=== PATIENT | female | born 1980 | race Two or more races ===

== ENCOUNTER 2018-09-23 08:21 | Emergency (ER) | payer OTHER ==
[~2018-09-23] VITALS: Ht 157.5 cm; Wt 52.2 kg
--- NOTE | 2018-09-23 08:28 | NUR ---
ED Nurse Note: Pt [place]IBA from [facility] store w/ complaints of palpitations since yesterday. Pt is also complaining of left under breast pain 03/26. Non radiating. Pt is A + O x4. Ambulatory. Skin warm to touch. Pt appears to be irritable. Pt takes synthroid for her thyroid.
[2018-09-23 08:30] VITALS: BP 132/91
--- NOTE | 2018-09-23 08:38 | NUR ---
ED Nurse Note: After being seen by JAY, pt decided to elope. Stated that she could "not take it anymore" and decided to leave w/o orders being carried out. Pt still was very irritable. Pt left ER w/ steady gait and w/ all of her belongings.
[2018-09-23 08:41] VITALS: BP 132/91
[2018-09-23] MEDS ORDERED: Morphine Sulfate 4mg/ml Inj (IV USE ONLY) IVP ONE (08:45)
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
== END 2018-09-23 08:45 | disposition left against medical advice (07) ==
LOC: EDBD 08:21 → EMR 08:30
DX: R00.2 Palpitations (principal); Z88.8 Allergy status to other drugs, medicaments and biological substances
CPT/HCPCS: 99282

== ENCOUNTER 2019-10-16 17:09 | Emergency (ER) | payer OTHER ==
[~2019-10-16] VITALS: Ht 160 cm; Wt 54.4 kg
[2019-10-16 17:15] VITALS: BP 125/72
--- NOTE | 2019-10-16 17:15 | NUR ---
ED Nurse Note: Patient [place] from street [place]. Patient appears to be intoxicated from ETOH. Patient AxO x 4, but slurring words. Patient resting safely in bed, cooperative.
[2019-10-16] MEDS ORDERED: Ketorolac 30mg Inj IV ONE (17:30)
[2019-10-16 18:06] LABS: BASOPHILS % (AUTO) 1.9 % (0.0-2.0); EOSINOPHILS % (AUTO) 0.3 % (0.0-3.0); HEMATOCRIT 36.2 % (37.0-47.0); HEMOGLOBIN 11.1 G/DL (12.0-16.0); LYMPHOCYTES % (AUTO) 32.1 % (20.0-45.0); MEAN CORPUSCULAR VOLUME 99 FL (80-99); MONOCYTES % (AUTO) 5.8 % (1.0-10.0); PLATELET COUNT 199 K/UL (150-450); RED BLOOD COUNT 3.67 M/UL (4.20-5.40); WHITE BLOOD COUNT 3.7 K/UL (4.8-10.8)
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
[2019-10-16 18:18] LABS: ANION GAP 17 mmol/L (5-15); BLOOD UREA NITROGEN 3 mg/dL (7-18); CALCIUM 8.4 MG/DL (8.5-10.1); CARBON DIOXIDE 19 MMOL/L (21-32); CHLORIDE 105 MMOL/L (98-107); CREATININE 0.5 MG/DL (0.55-1.30); POTASSIUM 4.4 MMOL/L (3.5-5.1); SODIUM 141 MMOL/L (136-145)
[2019-10-16 18:25] LABS: ALANINE AMINOTRANSFERASE 73 U/L (12-78); ALBUMIN 4.1 G/DL (3.4-5.0); ALBUMIN/GLOBULIN RATIO 1.1 (1.0-2.7); ALKALINE PHOSPHATASE 61 U/L (46-116); ASPARTATE AMINO TRANSFERASE 120 U/L (15-37); BILIRUBIN,TOTAL 0.4 MG/DL (0.2-1.0)
--- NOTE | 2019-10-16 18:30 | NUR ---
ED Nurse Note: 22g IV started in left wrist. Blood and urine specimen sent to lab
[2019-10-16] MEDS ORDERED: D5 1/2NS 1000ml IV ONE (18:45)
--- NOTE | 2019-10-16 18:48 | Diagnostic Imaging Report ---
History: PAIN Exam: XR CXR 1 VIEW Comparison: None available FINDINGS: The lungs are clear. The cardiac and mediastinal contours are within limits. The visualized osseous structures appear within limits. IMPRESSION: No evidence of acute disease.
[2019-10-16] MEDS ORDERED: FAMOTIDINE20 MG ORAL (18:59)
[2019-10-16] MEDS ORDERED: DOXYCYCLINE HY100 M6 PO (18:59)
[2019-10-16 19:00] VITALS: BP 127/71
[2019-10-16] MEDS ORDERED: cefTRIAXone 1 GM in NS 55 ML IVPB ONE (19:00)
[2019-10-16] MEDS ORDERED: Doxycycline Monohydrate 100mg ORAL ONE (19:00)
--- NOTE | 2019-10-16 19:10 | NUR ---
HAND-OFF: Report given to Adela HESS.
--- NOTE | 2019-10-16 19:15 | NUR ---
ED Nurse Note: Report received from DESHAWN Alaniz. Pt is awake and alert, resting in bed. NAD. Will cont. to monitor.
[2019-10-16 19:39] LABS: APPEARANCE,URINE CLEAR; BILIRUBIN, URINE NEGATIVE (NEGATIVE); COLOR,URINE PALE YELLOW; GLUCOSE, URINE (UA) NEGATIVE (NEGATIVE); KETONES,URINE 1+ (NEGATIVE); LEUKOCYTE ESTERASE ,URINE NEGATIVE (NEGATIVE); NITRITE,URINE NEGATIVE (NEGATIVE); PH,URINE 6 (4.5-8.0); PROTEIN,URINE 1+ (NEGATIVE); UROBILINOGEN,URINE NORMAL MG/DL (0.0-1.0)
--- NOTE | 2019-10-16 20:40 | NUR ---
ED Nurse Note: Pt is awake and alert at this time, resting in bed. Pt is asking when she can leave, ERMD aware.
[2019-10-16 21:15] VITALS: BP 130/65
--- NOTE | 2019-10-16 21:15 | NUR ---
ER DISCHARGE NOTE: Patient is cleared to be discharged per ERMD, pt is aox4, on room air, with stable vital signs. pt was given dc and prescription instructions, pt was able to verbalize understanding, pt id band and iv site removed without complications. pt is able to ambulate with steady gait. pt took all belongings.
== END 2019-10-16 21:15 | disposition home or self-care (01) ==
LOC: EDBD 17:09 → EMR 17:35
DX: F10.129 Alcohol abuse with intoxication, unspecified (principal); N73.9 Female pelvic inflammatory disease, unspecified; Z88.8 Allergy status to other drugs, medicaments and biological substances; Z79.899 Other long term (current) drug therapy; E03.9 Hypothyroidism, unspecified; F17.200 Nicotine dependence, unspecified, uncomplicated; R19.7 Diarrhea, unspecified; R00.0 Tachycardia, unspecified
CPT/HCPCS: 36415; 71045; 80053; 80307; 81003; 81025; 83690; 84484; 85025; 93005; 96361; 96365; 96375; G0480; J0696; J1885; J2405; J7030; S0028; Z7502; 99284